=== PATIENT | female | born 1955 | race Caucasian/White ===

== ENCOUNTER 2017-08-13 12:51 | Emergency (ER) | payer SELFPAY ==
[~2017-08-13] VITALS: Ht 160 cm; Wt 104.3 kg
--- NOTE | 2017-08-13 14:21 | Diagnostic Imaging Report ---
PROCEDURE:KNEE LEFT THREE VIEWS COMPARISON:None. INDICATIONS:SWOLLEN LEFT LEG FINDINGS: There are no fractures, dislocations, lytic or blastic lesions. The bones are well-mineralized. No suprapatellar joint effusion. Patellofemoral joint space narrowing. The soft-tissues are unremarkable. CONCLUSION: No acute fracture or dislocation of the left knee. Dictated by: Kali Rodríguez M.D. on 08/13/2017 at 14:30 Electronically approved by: Kali Rodríguez M.D. on 08/13/2017 at 14:30
[2017-08-13 21:32] VITALS: BP 149/93
== END 2017-08-13 18:33 | disposition home or self-care (01) ==
LOC: ER 12:51
DX: M25.562 Pain in left knee (principal); I10 Essential (primary) hypertension; W01.0XXA Fall on same level from slipping, tripping and stumbling without subsequent striking against object, initial encounter
CPT/HCPCS: 93971; 99283